=== PATIENT | male | born 1945 | race Caucasian/White ===

== ENCOUNTER 2017-07-26 09:22 | Day surgery (SDC) | payer OTHER ==
[~2017-07-26] VITALS: Ht 175.3 cm; Wt 95.2 kg
[~2017-07-26 09:22] MED LIST: FISH OIL 1,2001 EAC3 PO; FOLI1 PO; HYDCHL25 PO; LOSARTAN POTAS100 MG PO; OMEPRAZOLE MAGN20 MG PO; PRAV20 PO; ROLAIDS PO; SULF500A PO
== END 2017-07-26 22:42 | disposition home or self-care (01) ==
LOC: ORSCMMR 09:22 → ORD 10:45 → ORSCMMR 22:42
PROVIDERS: Orthopaedic Surgery
PROC: 0QPC04Z Removal of Internal Fixation Device from Left Lower Femur, Open Approach (ICD-10-PCS; principal; 2017-07-26 10:45)
DX: T84.195A Other mechanical complication of internal fixation device of left femur, initial encounter (principal); I10 Essential (primary) hypertension; Z87.891 Personal history of nicotine dependence; K21.9 Gastro-esophageal reflux disease without esophagitis; Z79.899 Other long term (current) drug therapy
CPT/HCPCS: 73552; J0690; J1100; J2250; J2405; J3010; J7120

== ENCOUNTER 2018-12-26 07:20 | Day surgery (SDC) | payer OTHER ==
[~2018-12-26] VITALS: Ht 175.3 cm; Wt 93.1 kg
[~2018-12-26 07:20] MED LIST changes: +FISH OIL 1,2001 EAC1 PO
--- NOTE | 2018-12-26 08:30 | NUR ---
12/26/18 0830 Modesta Duval S ATTEMPT X1 IN LEFT HAND. IV STARTED IN LEFT INNER FOREARM.
== END 2018-12-26 10:50 | disposition home or self-care (01) ==
LOC: ORSCSDS 07:20
PROVIDERS: Orthopaedic Surgery
PROC: 0SBD4ZZ Excision of Left Knee Joint, Percutaneous Endoscopic Approach (ICD-10-PCS; principal; 2018-12-26 08:30)
DX: S83.282A Other tear of lateral meniscus, current injury, left knee, initial encounter (principal); M17.9 Osteoarthritis of knee, unspecified; Z96.7 Presence of other bone and tendon implants; I10 Essential (primary) hypertension; Z79.899 Other long term (current) drug therapy; Z87.891 Personal history of nicotine dependence
CPT/HCPCS: J0690; J1100; J2250; J2405; J2704; J3010; J7120

== ENCOUNTER 2019-03-10 17:26 | Observation (INO) | payer OTHER ==
[~2019-03-10] VITALS: Ht 175.3 cm; Wt 92.4 kg
[~2019-03-10 17:26] MED LIST changes: +ANTACID CHEWAB1 EACH PO; -FISH OIL 1,2001 EAC1 PO; +Fish Oil Conc1000 MG PO; -ROLAIDS PO
[2019-03-10 17:49] LABS: BASOPHILS ABSOLUTE AUTO 0.05 K/mm3 (0.00-0.23); BASOPHILS PERCENT AUTO 0 % (0-2); EOSINOPHILS ABSOLUTE AUTO 0.05 K/mm3 (0.00-0.68); EOSINOPHILS PERCENT AUTO 0 % (0-6); Hematocrit 40.8 % (37.0-53.0); Hemoglobin 13.5 g/dL (13.5-17.5); IMMATURE GRAN ABSOLUTE AUTO 0.05 K/mm3 (0.00-0.10); IMMATURE GRAN PERCENT AUTO 0 % (0-1); LYMPHOCYTES ABSOLUTE AUTO 0.96 K/mm3 (0.84-5.20); LYMPHOCYTES PERCENT AUTO 8 % (21-46); MONOCYTES ABSOLUTE AUTO 0.69 K/mm3 (0.16-1.47); MONOCYTES PERCENT AUTO 6 % (4-13); Mean Corpuscular HGB 31.8 pg (26.0-34.0); Mean Corpuscular HGB Conc 33.1 g/dL (31.5-36.5); Mean Corpuscular Volume 96 fL (80-100); Mean Platelet Volume 10.4 fL (9.1-12.4); NEUTROPHILS ABSOLUTE AUTO 10.37 K/mm3 (1.96-9.15); NEUTROPHILS PERCENT AUTO 85 % (41-73); Platelet Count 177 K/mm3 (150-400); RDW Coefficient Variation 12.8 % (11.7-14.2); RDW Standard Deviation 45.4 fL (35.1-46.3); Red Blood Cell Count 4.25 M/mm3 (4.30-5.90); White Blood Cell Count 12.17 K/mm3 (4.00-11.30)
[2019-03-10 18:09] LABS: Alanine Aminotransfer (ALT/SGP 26 U/L (12-78); Albumin, Blood 4.1 g/dL (3.4-5.0); Albumin/Globulin Ratio 1.3 (0.8-1.8); Alk Phos 78 U/L (50-136); Anion Gap 4 mmol/L (6-16); Aspartate Aminotrans (AST/SGOT 18 U/L (12-37); Bilirubin, Total 0.5 mg/dL (0.1-1.0); Blood Urea Nitrogen 21 mg/dL (8-24); Bun/Creatinine Ratio 19.4 (12.0-20.0); CO2, Blood 26 mmol/L (21-32); Chloride, Blood 110 mmol/L (98-108); Creatinine, Blood 1.08 mg/dL (0.60-1.20); Globulin, Blood 3.2 g/dL (2.2-4.0); Glomerular Filtration Rate >60 (60-); Glucose, Blood 125 mg/dL (70-99); Potassium, Blood 4.1 mmol/L (3.5-5.5); Sodium, Blood 140 mmol/L (136-145); Total Protein, Blood 7.3 g/dL (6.4-8.2)
[2019-03-10] MEDS ORDERED: Sulfazine500 MG PO (20:09)
--- NOTE | 2019-03-10 22:40 | NUR ---
PT ARRIVAL AT 2115 PT ARRIVES TO PCU WITH ED RN AT BEDSIDE. PT IMMEDIATELY TRANSFERRED TO CT SCAN WITH ED RN AND RETURNED APPROX 10 MINS LATER. VSS, NO ACUTE SIGNS OF DISTRESS. PT COMPLAINS OF 2/10 PAIN, RLE SPLINTED UPON ARRIVAL. PT ALERT AND ORIENTED, CONVERSING APPROPRIATELY, ABLE TO MAKE NEEDS KNOWN. NS AT 75 ML/HR. NEW RFA IV STARTED BY CN AND FLUIDS INFUSING IN RFA PIV. UPON ARRIVAL, PT ON 6L NC WITH O2 SATURATION AT 100%; PT TITRATED TO 2L WITH SATURATIONS AT 96%. PT DENIES COMPLAINTS OF SOB, CHEST PAIN, CHEST PRESSURE, OR DEL ANGEL. AT APPROX 2220 DR SWANN IN TO SEE PT WITH VERBAL ORDERS FOR NPO P MN. AT APPROX 2230 THIS RN CALLED PROVIDER WITH QUESTION REGARDING ADMISSION ORDERS. ORDERS TO BE PUT IN. NO ACUTE CONCERNS TO NOTE AT THIS TIME, WILL CONTINUE TO MONITOR AND PROVIDE CARE PER CLINICAL JUDGEMENT AND ORDERS.
[2019-03-11 03:46] LABS: Hematocrit 38.8 % (37.0-53.0); Hemoglobin 13.2 g/dL (13.5-17.5); Mean Corpuscular HGB 31.9 pg (26.0-34.0); Mean Corpuscular Volume 94 fL (80-100); Mean Platelet Volume 10.3 fL (9.1-12.4); Platelet Count 173 K/mm3 (150-400); RDW Standard Deviation 44.9 fL (35.1-46.3); Red Blood Cell Count 4.14 M/mm3 (4.30-5.90); White Blood Cell Count 7.97 K/mm3 (4.00-11.30)
[2019-03-11 04:06] LABS: Alanine Aminotransfer (ALT/SGP 31 U/L (12-78); Albumin, Blood 3.6 g/dL (3.4-5.0); Albumin/Globulin Ratio 1.2 (0.8-1.8); Alk Phos 71 U/L (50-136); Anion Gap 7 mmol/L (6-16); Aspartate Aminotrans (AST/SGOT 52 U/L (12-37); Bilirubin, Total 0.7 mg/dL (0.1-1.0); Blood Urea Nitrogen 20 mg/dL (8-24); Bun/Creatinine Ratio 20.6 (12.0-20.0); CO2, Blood 26 mmol/L (21-32); Calcium, Blood 8.3 mg/dL (8.5-10.1); Chloride, Blood 110 mmol/L (98-108); Creatinine, Blood 0.97 mg/dL (0.60-1.20); Globulin, Blood 3.1 g/dL (2.2-4.0); Glomerular Filtration Rate >60 (60-); Glucose, Blood 101 mg/dL (70-99); Potassium, Blood 3.9 mmol/L (3.5-5.5); Sodium, Blood 143 mmol/L (136-145); Total Protein, Blood 6.7 g/dL (6.4-8.2)
--- NOTE | 2019-03-11 05:29 | NUR ---
Shift Summary Pt with no acute events overnight, VSS, no apparent signs of distress. Pt medicated for pain x1 this shift. Pt on RA at this time with o2 sats stable (pt arrived at 6L NC and tolerated titration without complications). this pt is RA at baseline. Plans for OR this day, dr. quick already seen pt. Pt has been NPO since midnight per orders. Alert and oriented, uses call light appropriately to make needs known. Will continue to monitor and provide care until day shift assumes care.
--- NOTE | 2019-03-11 11:56 | NUR ---
PT TAKEN TO OR. PT TAKEN TO OR BY ASHLEY MCCOY. MESSAGE LEFT WITH RECIEVING RN FOR ROOM 217 FOR REPORT. PT BELONGINGS TO BE SENT TO ROOM 217.
--- NOTE | 2019-03-11 12:18 | NUR ---
History, Chart, Medications and Allergies reviewed before start of procedure.Patient confirms NPO status and agrees with scheduled surgery. Lungs clear T/O to Auscultation.
--- NOTE | 2019-03-11 13:58 | NUR ---
REPORT CALLED TO ASHLEY SANTIZO ON SURGICAL. PT BELONGINGS SENT TO 217.
--- NOTE | 2019-03-11 15:40 | NUR ---
PATIENT TO ROOM 217 VIA BED FROM PACU. AWAKE, ORIENTED. RLE ELEVATED ON PILLOW, EXTERNAL FIXATION TO ANKLE. AC WRAP WITH SCANT AMOUNT RED DRAINAGE AT PIN SITE. TOES PINK AND WARM. PATIENT ABLE TO LIFT LEG AND WIGGLE TOES. DENIES PAIN, CP, SOB. VSS. LS CLEAR, DECREASED IN BASES. BIOX 95% ON L O2 PER NC. HRR. DENIES NAUSEA, STATES HE IS JUST HUNGRY. PATIENT STATES KNOWLEDGE OF CALL LIGHT, ETC. CONT TO MONITOR.
--- NOTE | 2019-03-11 16:57 | NUR ---
PATIENT TOOK SNACK, NOW SLEEPING. RESP E/U.
--- NOTE | 2019-03-11 19:12 | NUR ---
PATIENT CONT TO DENY PAIN. VSS. TAKING PO W/O C/O. R LEG ELEVATED. NO NEW DRAINAGE FROM PIN SITES. TOES PINK AND WARM. PATIENT STATES HE FEELS LIKE HE MAY NEED TO URINATE 'SOON.' URINAL AND CALL LIGHT IN REACH. NO ACUTE CHANGES.
--- NOTE | 2019-03-12 04:35 | NUR ---
SHIFT SUMMARY PT HAS SLEPT MUCH OF THE NIGHT. EXTERNAL FIXATION IN PLACE WITH AC WRAP TO LOWER R LEG/FOOT. AT THE START OF THE SHIFT PT DENIED FEELING IN R FOOT BUT HAS SINCE GAINED FEELING IN HIS PINKY TOE. PT HAS DENIED PAIN. ASSISTED WITH ADL'S PRN.
--- NOTE | 2019-03-12 19:22 | NUR ---
SHIFT SUMMARY PATIENT CONT TO DENY PAIN. TOLERATING PO. VOIDING. UP TO SIDE OF BED X 3 THIS SHIFT. IS ENCOURAGED. RLE W/O ADDITIONAL DRAINAGE. TOES PINK, WARM. NO ACUTE CHANGES OR C/O.
--- NOTE | 2019-03-13 04:46 | NUR ---
SHIFT SUMMARY PT A/O. HAS BEEN IN BED WITH R LEG ELEVATED. PT WAS MEDICATED FOR PAIN ONCE DURING THE NIGHT AND HAS SINCE REPORTED LITTLE TO NO PAIN. TOLERATING PO FLUIDS, FOOD. USES URINAL. PT REPORTED NO BM SINCE ADMISSION, GIVEN STOOL SOFTENERS PER ORDERS. EXTERNAL FIXATION IN PLACE. PT REPORTS SENSATION IN TOES.
--- NOTE | 2019-03-13 09:56 | NUR ---
therapy: PT WORKING WITH THERAPY AT THIS TIME. PLAN FOR SNF DC TODAY. PT DENIES PAIN AT THIS TIME.
--- NOTE | 2019-03-13 13:33 | NUR ---
report from obinna laird pt on edge of bed helped pt get his stuff packed up pt to transfer to today at 1500
--- NOTE | 2019-03-13 15:23 | NUR ---
[facility] to telephone report given no acute changes
== END 2019-03-13 15:13 ==
LOC: ER 17:26 → PCU 17:27 → SURS 03-11 12:00
PROVIDERS: Emergency Medicine; Orthopaedic Surgery; ADMIT Internal Medicine
PROC: 0QSGXZZ Reposition Right Tibia, External Approach (ICD-10-PCS; principal; 2019-03-11 12:30)
PROC: 0QSJXZZ Reposition Right Fibula, External Approach (ICD-10-PCS; principal; 2019-03-11 12:30)
DX: S82.391A Other fracture of lower end of right tibia, initial encounter for closed fracture (principal); S82.831A Other fracture of upper and lower end of right fibula, initial encounter for closed fracture; N40.0 Benign prostatic hyperplasia without lower urinary tract symptoms; E78.5 Hyperlipidemia, unspecified; Z79.899 Other long term (current) drug therapy; Z87.19 Personal history of other diseases of the digestive system; Z85.038 Personal history of other malignant neoplasm of large intestine; Z93.3 Colostomy status; W10.9XXA Fall (on) (from) unspecified stairs and steps, initial encounter
CPT/HCPCS: 27752; 36415; 71045; 73560-RT; 73590; 73600; 73610; 73700; 76000; 76377; 80053; 85025; 85027; 93005; 93010; 97110; 97116; 97162; 97166; 97530; 97535; 99152; 99285-25; A9270-GY; C1713; J0690; J1100; J1650; J1885; J2405; J2704; J3010; J7030; J7120

== ENCOUNTER 2019-03-25 10:51 | Day surgery (SDC) | payer OTHER ==
[~2019-03-25] VITALS: Ht 175.3 cm; Wt 91.0 kg
[~2019-03-25 10:51] MED LIST changes: +ACET325 PO; +BISA10S PR; +DOCU100 PO; +ENOX40I SC; +FISH OIL PO; +HYDR1TAB94 PO; +Milk Of Ma400 MG/5 M PO; +OMEPRAZOLE20 MG PO; +Sulfazine500 MG PO
--- NOTE | 2019-03-25 11:52 | NUR ---
Patient up to Ambulate independently. Gait steady. History, Chart, Medications and Allergies reviewed before start of procedure. Lungs clear T/O to Auscultation. Patient confirms NPO status and agrees with scheduled surgery. Pre-Op teaching done. Pt verbalizes understanding. Patient States Post-Procedure ride home has been arranged. Patient reports completing Chlorhexadine shower X2 prior to admission to hospital.
[2019-03-26 05:15] LABS: BASOPHILS ABSOLUTE AUTO 0.02 K/mm3 (0.00-0.23); BASOPHILS PERCENT AUTO 0 % (0-2); EOSINOPHILS ABSOLUTE AUTO 0.01 K/mm3 (0.00-0.68); EOSINOPHILS PERCENT AUTO 0 % (0-6); Hemoglobin 11.7 g/dL (13.5-17.5); IMMATURE GRAN ABSOLUTE AUTO 0.04 K/mm3 (0.00-0.10); IMMATURE GRAN PERCENT AUTO 0 % (0-1); LYMPHOCYTES ABSOLUTE AUTO 1.79 K/mm3 (0.84-5.20); LYMPHOCYTES PERCENT AUTO 17 % (21-46); MONOCYTES ABSOLUTE AUTO 1.15 K/mm3 (0.16-1.47); MONOCYTES PERCENT AUTO 11 % (4-13); Mean Corpuscular HGB 32.2 pg (26.0-34.0); Mean Corpuscular HGB Conc 33.4 g/dL (31.5-36.5); Mean Corpuscular Volume 96 fL (80-100); Mean Platelet Volume 9.9 fL (9.1-12.4); NEUTROPHILS PERCENT AUTO 71 % (41-73); Platelet Count 256 K/mm3 (150-400); RDW Coefficient Variation 12.1 % (11.7-14.2); Red Blood Cell Count 3.63 M/mm3 (4.30-5.90); White Blood Cell Count 10.41 K/mm3 (4.00-11.30)
[2019-03-26 05:34] LABS: Anion Gap 5 mmol/L (6-16); Blood Urea Nitrogen 27 mg/dL (8-24); Bun/Creatinine Ratio 25.7 (12.0-20.0); CO2, Blood 27 mmol/L (21-32); Calcium, Blood 8.4 mg/dL (8.5-10.1); Chloride, Blood 107 mmol/L (98-108); Creatinine, Blood 1.05 mg/dL (0.60-1.20); Glomerular Filtration Rate >60 (60-); Glucose, Blood 97 mg/dL (70-99); Potassium, Blood 4.1 mmol/L (3.5-5.5); Sodium, Blood 139 mmol/L (136-145)
--- NOTE | 2019-03-26 05:59 | NUR ---
SHIFT SUMMARY POD 1 THIS AM. PT A&OX4 W/VSS. AC WRAP AND SPLINT TO RLE C/D/I. PAIN MANAGED 1X WITH PO MEDICATION. ABLE TO REPOSITION SELF IN BED. NO ACUTE CHANGES THIS SHIFT, SLEEP MOST OF THE NIGHT. PLAN TO RETURN TO SNF THIS AM.
--- NOTE | 2019-03-26 08:39 | NUR ---
DR VALLE AND KATELIN HERE RECENTLY TO SEE PT, REPORTED TO REINFORCE DRESSING AND TO HOLD LOVENOX TODAY. REPORTS MAY DISCHARGE TODAY. DRESSING NOW REINFORCED.
--- NOTE | 2019-03-26 11:39 | NUR ---
Spiritual care visit conducted. Patient tells me about his 31 year career as a [employer], his 51 years as a member of [employer] and medical issues of heart, hip and leg trouble. Patient is kind and upbeat. I listen empathically, reinforce helpful attitudes and practices, normalize patient experience and provide companionship and prayer. Patient is tearful during the prayer and extremely appreciative of the visit. I will continue to remain available.
--- NOTE | 2019-03-26 17:00 | NUR ---
REPORT GIVEN TO BELLA AT [facility]. PT RECENTLY MED FOR PAIN.
--- NOTE | 2019-03-26 17:03 | NUR ---
DISCHARGE: PT EATING AND DRINKING. PT PAIN CONTROLLED ON PO PAIN MEDICATION. PT REPORTED ONLY WANTING ONE PAIN PILL RECENTLY. REPORT BEEN GIVEN TO JAMAL. PT VOIDING. PT WORKED WITH THERAPY EARLIER TODAY. BELONGINGS AND PAPERWORK SENT WITH PT. PT SENT WITH I/S AND DRESSING SUPPLIES.
--- NOTE | 2019-03-27 09:06 | NUR ---
03/27/19 0906 Herminia Wyatt VERIFICATIONS: EDIT CHART.
== END 2019-03-26 17:07 ==
LOC: ORSCMMR 10:51 → ORD 12:30 → SURS 17:19 → ORSCMMR 03-26 17:07 → SURS 03-26 17:07
PROVIDERS: Orthopaedic Surgery; Podiatrist Foot & Ankle Surgery
PROC: 0YP9XYZ Removal of Other Device from Right Lower Extremity, External Approach (ICD-10-PCS; principal; 2019-03-25 12:30)
PROC: 0QSG04Z Reposition Right Tibia with Internal Fixation Device, Open Approach (ICD-10-PCS; principal; 2019-03-25 12:30)
PROC: 0QSJ04Z Reposition Right Fibula with Internal Fixation Device, Open Approach (ICD-10-PCS; principal; 2019-03-25 12:30)
DX: S82.251A Displaced comminuted fracture of shaft of right tibia, initial encounter for closed fracture (principal); S82.451A Displaced comminuted fracture of shaft of right fibula, initial encounter for closed fracture; W18.30XA Fall on same level, unspecified, initial encounter; I10 Essential (primary) hypertension; K21.9 Gastro-esophageal reflux disease without esophagitis; E78.5 Hyperlipidemia, unspecified; Z79.899 Other long term (current) drug therapy
CPT/HCPCS: 36415; 73590; 80048; 85025; 97161; 97165; 97530; C1713; C1769; J0690; J1100; J1885; J2370; J2405; J2704; J3010; J7030; J7120

== ENCOUNTER → 2019-04-07 | Outpatient (CLI) | payer OTHER | END | disposition home or self-care (01) | LOC: LAB RH 08:05 → LAB 08:05 → EDSTATUS 12:56 | DX: E29.1 Testicular hypofunction (principal) | CPT/HCPCS: 84403 ==

== ENCOUNTER → 2019-09-09 | Outpatient (CLI) | payer OTHER | END | disposition home or self-care (01) | LOC: PLD 11:42 → LAB SHORT 11:42 | DX: L30.8 Other specified dermatitis (principal) | CPT/HCPCS: 88305; 88312 ==

== ENCOUNTER → 2021-08-24 | Outpatient (CLI) | payer OTHER | END | disposition home or self-care (01) | LOC: LAB 08:12 → LAB SHORT 08:12 | DX: L98.499 Non-pressure chronic ulcer of skin of other sites with unspecified severity (principal) | CPT/HCPCS: 87070; 87205 ==

== ENCOUNTER → 2021-09-28 | Outpatient (CLI) | payer OTHER | END | disposition home or self-care (01) | LOC: LAB SHORT 08:40 → LAB 08:40 | DX: L08.0 Pyoderma (principal) | CPT/HCPCS: 87070; 87205 ==

== ENCOUNTER 2021-10-10 02:03 | Day surgery (SDC) | payer OTHER | END 2021-10-10 23:07 | disposition home or self-care (01) | LOC: WOUND 02:03 | DX: L97.312 Non-pressure chronic ulcer of right ankle with fat layer exposed (principal); S82.91XA Unspecified fracture of right lower leg, initial encounter for closed fracture; I73.9 Peripheral vascular disease, unspecified; G90.09 Other idiopathic peripheral autonomic neuropathy; I10 Essential (primary) hypertension; Z87.891 Personal history of nicotine dependence | CPT/HCPCS: G0463 ==

== ENCOUNTER 2021-10-24 01:54 | Day surgery (SDC) | payer OTHER | END 2021-10-24 22:53 | disposition home or self-care (01) | LOC: WOUND 01:54 | DX: L98.499 Non-pressure chronic ulcer of skin of other sites with unspecified severity (principal); I73.9 Peripheral vascular disease, unspecified; G90.09 Other idiopathic peripheral autonomic neuropathy; S82.91XD Unspecified fracture of right lower leg, subsequent encounter for closed fracture with routine healing; X58.XXXD Exposure to other specified factors, subsequent encounter | CPT/HCPCS: G0463 ==

== ENCOUNTER 2021-11-14 01:03 | Day surgery (SDC) | payer OTHER | END 2021-11-14 23:00 | disposition home or self-care (01) | LOC: WOUND 01:03 | DX: L97.312 Non-pressure chronic ulcer of right ankle with fat layer exposed (principal); S82.91XD Unspecified fracture of right lower leg, subsequent encounter for closed fracture with routine healing; X58.XXXD Exposure to other specified factors, subsequent encounter; L98.499 Non-pressure chronic ulcer of skin of other sites with unspecified severity; I73.9 Peripheral vascular disease, unspecified; G90.09 Other idiopathic peripheral autonomic neuropathy | CPT/HCPCS: A9270; G0463 ==

== ENCOUNTER → 2021-11-28 | Day surgery (SDC) | payer OTHER | LOC: WOUND 03:10 | DX: Z09 Encounter for follow-up examination after completed treatment for conditions other than malignant neoplasm (principal); L98.499 Non-pressure chronic ulcer of skin of other sites with unspecified severity; I73.9 Peripheral vascular disease, unspecified; S82.91XD Unspecified fracture of right lower leg, subsequent encounter for closed fracture with routine healing; G90.09 Other idiopathic peripheral autonomic neuropathy | CPT/HCPCS: A9270; G0463 ==

== ENCOUNTER 2023-11-23 15:03 | Observation (INO) | payer OTHER ==
[~2023-11-23] VITALS: Ht 170.2 cm; Wt 95.2 kg
[2023-11-23 15:30] LABS: BASOPHILS ABSOLUTE AUTO 0.04 K/mm3 (0.00-0.23); BASOPHILS PERCENT AUTO 1 % (0-2); EOSINOPHILS ABSOLUTE AUTO 0.03 K/mm3 (0.00-0.68); EOSINOPHILS PERCENT AUTO 0 % (0-6); Hematocrit 38.8 % (37.0-53.0); Hemoglobin 13.7 g/dL (13.5-17.5); IMMATURE GRAN ABSOLUTE AUTO 0.02 K/mm3 (0.00-0.10); IMMATURE GRAN PERCENT AUTO 0 % (0-1); LYMPHOCYTES ABSOLUTE AUTO 1.55 K/mm3 (0.84-5.20); LYMPHOCYTES PERCENT AUTO 21 % (21-46); MONOCYTES ABSOLUTE AUTO 0.78 K/mm3 (0.16-1.47); MONOCYTES PERCENT AUTO 11 % (4-13); Mean Corpuscular HGB 32.2 pg (26.0-34.0); Mean Corpuscular HGB Conc 35.3 g/dL (31.5-36.5); Mean Corpuscular Volume 91 fL (80-100); NEUTROPHILS ABSOLUTE AUTO 4.98 K/mm3 (1.96-9.15); NEUTROPHILS PERCENT AUTO 67 % (41-73); Platelet Count 179 K/mm3 (150-400); RDW Coefficient Variation 12.3 % (11.7-14.2); RDW Standard Deviation 41.1 fL (35.1-46.3); Red Blood Cell Count 4.25 M/mm3 (4.30-5.90)
[2023-11-23 15:51] LABS: Albumin/Globulin Ratio 1.2 (0.8-1.8); Bilirubin, Total 0.6 mg/dL (0.1-1.0); Bun/Creatinine Ratio 23.5 (12.0-20.0); Calcium, Blood 8.5 mg/dL (8.5-10.1); Creatinine, Blood 1.02 mg/dL (0.60-1.20); Globulin, Blood 3.4 g/dL (2.2-4.0); Potassium, Blood 3.7 mmol/L (3.5-5.5); Total Protein, Blood 7.4 g/dL (6.4-8.2)
[2023-11-23] MEDS ORDERED: PRAV20 PO (16:29)
[2023-11-23] MEDS ORDERED: Aspirin 325 MG Tab PO ONE (16:45)
[2023-11-23 16:53] LABS: Cholesterol 208 mg/dL (50-200); HDL Cholesterol 70 mg/dL (>39); LDL/HDL RATIO 1.5; Low Density Lipoprotein Chol 102 mg/dL (0-110); Triglycerides 179 mg/dL (30-160); Very Low Density Lipoprot Chol 35 mg/dL (6-32)
[2023-11-23] MEDS ORDERED: LORazepam 2 MG/ML 1ML Injection IV PRN (18:00)
[2023-11-23] MEDS ORDERED: ChlordiazePOXIDE 25 MG Cap PO PRN (18:00)
[2023-11-23] MEDS ORDERED: Thiamine HCl 100 MG in NS 50 ML IV SCH (19:00)
[2023-11-23] MEDS ORDERED: Folic Acid 1 MG in NS 50 ML IV SCH (19:00)
[2023-11-23] MEDS ORDERED: AVAPRO300 MG PO (19:19)
[2023-11-23 19:54] VITALS: BP 150/72
[2023-11-23] MEDS ORDERED: SulfASALazine 500 MG Tab PO SCH (21:00)
--- NOTE | 2023-11-23 21:23 | NUR ---
ADMIT NOTE 78 YR OLD MALE AADMITTED TO FLOOR FROM THE ED WITH DX OF POSSIBLE CVA. SYMPTOMS INCLUDED BLURRED VISION AND CONFUSION. WAS ACCOMPANIED BY NEIGHBOR. ALERT TO QUESTIONS ASKED. RIGHT EYE WAS REMOVED PREVIOUSLY - SEE PT HX. LEFT EYE FOLLOWS DIRECTIONS BUT IS BLURRED VISION. HOIST WORKER EQUAL AND STRONG, VOICES FEELING IN ALL 4 EXT. PLANTAR AND DORSI FLEXION EQUAL. SOMEWHAT UNSTEADY GAIT, HAS CANE WITH HIM. ORIENTED TO USE OF CALL LIGHT, RAILS UP X 2 AND BED IN LOW POSITION FOR SAFETY. CALL LIGHT IN REACH. TOLERATES SNACK. MED TELE - SR WITH POSSIBLE 1ST DEG BLOCK. WILL CONT TO ASSESS/MONITOR
[2023-11-24 02:53] VITALS: BP 124/68
--- NOTE | 2023-11-24 03:26 | NUR ---
CIVIL CADD TECHNICIAN SUMMARY ADMITTED TO FLOOR EARLIER WITH DX OF POSSIBLE CVA. VSS. REPORTED CONFUSION AND BLURRY VISION PRIOR TO ED VISIT. A/O X 3-4. WALKS WITH CANE, SEEMS STEADY WITH AMBULATION. AGREES TO USE CALL LIGHT IF NEEDING TO GET OOB, FOR SAFETY. ON MED TELE, SR. NEURO CHECKS REVEAL FEELING IN ALL 4 EXT. TEEN COUNSELOR EQUAL AND STRONG. PLANTAR AND DORSI FLEXION APPEAR EQUAL. HAS BEEN RSTING QUIETLY WITH FEW INTERRUPTIONS OTHERWISE. CALL LIGHT IN REACH, RAILS UP X 2 AND BED IN LOW POSITION FOR SAFETY. ABLE TO REPOSITION SELF IN BED WITHOUT ASSIST. WILL CONTIUE TO MONITOR. SEE ADMIT NOTE FOR DETAILS
[2023-11-24] MEDS ORDERED: Acetaminophen 325 MG TABLET PO PRN (08:05)
[2023-11-24] MEDS ORDERED: Bisacodyl 10 MG Supp PR PRN (08:05)
[2023-11-24] MEDS ORDERED: Sennosides 8.6 MG Tab PO PRN (08:10)
[2023-11-24] MEDS ORDERED: NS 250 ML IV PRN (08:10)
[2023-11-24] MEDS ORDERED: Bisacodyl 5 MG TabEC PO PRN (08:10)
[2023-11-24 08:21] VITALS: BP 147/66
[2023-11-24 08:41] LABS: BASOPHILS ABSOLUTE AUTO 0.03 K/mm3 (0.00-0.23); BASOPHILS PERCENT AUTO 1 % (0-2); EOSINOPHILS ABSOLUTE AUTO 0.06 K/mm3 (0.00-0.68); EOSINOPHILS PERCENT AUTO 1 % (0-6); Hematocrit 38.6 % (37.0-53.0); Hemoglobin 13.4 g/dL (13.5-17.5); IMMATURE GRAN ABSOLUTE AUTO 0.03 K/mm3 (0.00-0.10); IMMATURE GRAN PERCENT AUTO 1 % (0-1); LYMPHOCYTES ABSOLUTE AUTO 1.24 K/mm3 (0.84-5.20); LYMPHOCYTES PERCENT AUTO 21 % (21-46); MONOCYTES ABSOLUTE AUTO 0.51 K/mm3 (0.16-1.47); MONOCYTES PERCENT AUTO 9 % (4-13); Mean Corpuscular HGB Conc 34.7 g/dL (31.5-36.5); Mean Corpuscular Volume 92 fL (80-100); Mean Platelet Volume 10.1 fL (9.1-12.4); NEUTROPHILS ABSOLUTE AUTO 4.14 K/mm3 (1.96-9.15); NEUTROPHILS PERCENT AUTO 69 % (41-73); Platelet Count 158 K/mm3 (150-400); RDW Coefficient Variation 12.4 % (11.7-14.2); RDW Standard Deviation 41.5 fL (35.1-46.3); Red Blood Cell Count 4.19 M/mm3 (4.30-5.90); White Blood Cell Count 6.01 K/mm3 (4.00-11.30)
[2023-11-24] MEDS ORDERED: Irbesartan 150 MG Tab PO SCH (09:00)
[2023-11-24] MEDS ORDERED: Aspirin 81 MG Chew PO SCH (09:00)
[2023-11-24] MEDS ORDERED: Atorvastatin 40 MG Tab PO SCH (09:00)
[2023-11-24] MEDS ORDERED: Enoxaparin 40 MG/0.4 ML SYR SC SCH (09:00)
[2023-11-24 09:14] LABS: Bun/Creatinine Ratio 21.3 (12.0-20.0); Calcium, Blood 8.6 mg/dL (8.5-10.1); Creatinine, Blood 0.85 mg/dL (0.60-1.20); Potassium, Blood 3.9 mmol/L (3.5-5.5)
[2023-11-24] MEDS ORDERED: Empagliflozin 10 MG TAB PO SCH (14:00)
[2023-11-24] MEDS ORDERED: Carvedilol 3.125 MG Tab PO SCH (14:00)
[2023-11-24 14:54] VITALS: BP 137/77
[2023-11-24 15:59] VITALS: BP 108/57
--- NOTE | 2023-11-24 16:09 | NUR ---
PROJECT ANALYST CALLED RN TO NOTIFY HER THAT THERE ARE SOME ST CHANGES ON TELE. OBTAINED VS, ASSESSED PT, HE STATES NO CHEST PAIN, NO DIZZINESS OR COMPLAINTS, FEELS NORMAL. CALL TO DR DUCKWORTH [phone]~ ORDER FOR EKG AND ONE TIME TROPONIN. ASKED FOR RN TO CALL HIM WHEN EKG SCANNED INTO COMPUTER.
--- NOTE | 2023-11-24 18:23 | NUR ---
SUMMARY- PT A/O X3, VERY FORGETFUL, MODERATE CONFUSION RELATED TO DETAILS OF PAST WEEK AND DIDNT KNOW DATE OR YEAR. STATES HE STILL FEELS FUZZY AND STILL HAS VISUAL DISTRUBANCE INCLUDING BLACK AREA IN R VISUAL FIELD THAT MOVES AROUND. AT TIMES A LITTLE DIZZI AND OFF BALANCE. PHYSICAL THERAPY EVALUATED PT AND FOUND THAT HE WAS UNSTEADY AND WOULD HAVE RECOMMENDED SNF, BUT WANTS TO GIVE HIM A DAY AND RE-EVAL TOMORROW SO HE CAN HOPEFULLY GO HOME- THIS IS THE PATIENTS WISHES ESPECIALLY BECAUSE HE HAS CATS AT HOME HE WANTS TO CARE FOR. RECEIVED CALL FROM [facility] [employer] AT [address] OF [facility]- CALLED AND DR DUCKWORTH ORDERED EKG AND TROP. CALLED AND LEFT MESSATE WHEN RESULTS OF EKG INTERFACED. TROP NEGATIVE.
[2023-11-24] MEDS ORDERED: Clopidogrel Bisulfate 75 MG Tab PO SCH (19:00)
[2023-11-24 19:51] VITALS: BP 126/70
[2023-11-24] MEDS ORDERED: Docusate Sodium 100 MG Cap PO SCH (21:00)
[2023-11-25 02:52] VITALS: BP 109/51
--- NOTE | 2023-11-25 03:49 | NUR ---
COMMUNICATIONS ELECTRICIAN SUPERVISOR SUMMARY VSS. NEURO CHECKS CONTINUE TO ASSESS POSSIBLE CVA. DENIES LOSS OF FEELING IN ALL 4 EXT. VOICED SIGHT IN EYE IMPROVED, BUT OCCASIONALLY SEEMS OUT OF FOCUS WHEN LOOKING AT PEOPLE. ENCOURAGED TO SPEAK WITH THE MD IN THE AM. MAPPING EDITOR EQUAL AND STRONG, PLANTAR AND DORSI FLEXION EQUAL. UP AD ANASTASIA WITH CANE. ENCOURAGED TO CALL IF NEEDING ASSIST. HAS BEEEN RESTING QUIETLY WITH FEW INTERRUPTIONS. MED TELE SINUS, BUT WENT [place]. WAS AWAKENED AT THAT TIME, SEEMED TO BE IN DEEP SLEEP AT THE TIME. ABLE TO POSITOIN SELF IN BED WITHOUT ASSIST. CALL LIGHT IN REACH, RAILS UP X 2 AND BED IN LOW POSITION FOR SAFETY. WILL CONTINUE TO MONITOR. AFFECT CHEERFUL AND COOPERATIVE WITH TREAMENT
[2023-11-25 05:05] LABS: BASOPHILS ABSOLUTE AUTO 0.03 K/mm3 (0.00-0.23); BASOPHILS PERCENT AUTO 1 % (0-2); EOSINOPHILS ABSOLUTE AUTO 0.06 K/mm3 (0.00-0.68); EOSINOPHILS PERCENT AUTO 1 % (0-6); Hematocrit 38.5 % (37.0-53.0); Hemoglobin 13.1 g/dL (13.5-17.5); IMMATURE GRAN ABSOLUTE AUTO 0.02 K/mm3 (0.00-0.10); IMMATURE GRAN PERCENT AUTO 0 % (0-1); LYMPHOCYTES ABSOLUTE AUTO 1.53 K/mm3 (0.84-5.20); LYMPHOCYTES PERCENT AUTO 26 % (21-46); MONOCYTES ABSOLUTE AUTO 0.58 K/mm3 (0.16-1.47); MONOCYTES PERCENT AUTO 10 % (4-13); Mean Corpuscular HGB 31.5 pg (26.0-34.0); Mean Corpuscular Volume 93 fL (80-100); Mean Platelet Volume 10.5 fL (9.1-12.4); NEUTROPHILS PERCENT AUTO 63 % (41-73); Platelet Count 156 K/mm3 (150-400); RDW Coefficient Variation 12.2 % (11.7-14.2); RDW Standard Deviation 41.5 fL (35.1-46.3); Red Blood Cell Count 4.16 M/mm3 (4.30-5.90); White Blood Cell Count 5.92 K/mm3 (4.00-11.30)
[2023-11-25 05:29] LABS: Bun/Creatinine Ratio 22.5 (12.0-20.0); Calcium, Blood 8.5 mg/dL (8.5-10.1); Creatinine, Blood 0.89 mg/dL (0.60-1.20); Potassium, Blood 3.9 mmol/L (3.5-5.5)
[2023-11-25 07:42] VITALS: BP 141/75
[2023-11-25 08:29] VITALS: BP 146/90
[2023-11-25] MEDS ORDERED: ATOR80 PO (09:38)
[2023-11-25] MEDS ORDERED: Aspir 8181 MG PO (09:39)
[2023-11-25] MEDS ORDERED: CLOP75 PO (09:40)
[2023-11-25] MEDS ORDERED: JARDIANCE10 MG PO (09:40)
[2023-11-25] MEDS ORDERED: CARV3.125 PO (09:40)
[2023-11-25 15:01] VITALS: BP 125/110
--- NOTE | 2023-11-25 17:04 | NUR ---
SHIFT SUMMARY PATIENT A/OX3 AND FORGETFUL. CIWA SCORE OF 1 TODAY. SPEECH THERAPY ASSESSED PATIENT AND NEW DIET ORDERS RECIEVED. MEDS TO BE GIVEN WHOLE IN APPLESAUCE. FOLIC ACID AND THIAMINE IV INFUSIONS CHANGED TO ORAL TABS. PATIENT DENIES WEAKNESS BUT COMPLAINING OF FORGETFULLNESS/DIFFICULTY REMEMBERING NAMES OF NEIGHBORS AND PETS. PATIENT EXPERIENCING VISUAL FIELD CUT IN LEFT EYE. OT EVAL TODAY REQUESTING COGNITIVE SCREEN. NOTIFIED. NO OTHER CONCERNS AT THIS TIME.
[2023-11-25 19:18] VITALS: BP 135/83
[2023-11-26 04:34] VITALS: BP 123/72
--- NOTE | 2023-11-26 05:09 | NUR ---
SHIFT SUMMARY NOC PT A/O X 4. LUMBEE AND FORGETFUL AT TIMES SINCE CVA, BUT PLEASANT AND COOPERATIVE WITH CARE. VSS. NO ACUTE CHANGES TO REPORT. PT STILL HAS C/O OF BLURRED VISION AND HAS TROUBLE MAKING OUT OBJECTS WITH L EYE. USING CANE INDEPENDENTLY IN ROOM WITH STABLE GAIT. NEURO CHECKS Q4H WITH NO NEW CHANGES. ON TELE SINUS [place] IN MID 50'S WHILE RESTING. PT HAS COGNITIVE AND PT EVALS SCHEDULED FOR TODAY. DISCHARGE PENDING PT RECOMMENDING SNF FOR REHAB VERSUS PT GOING HOME WITH HELP FROM NEIGHBORS AND [employer] MEM[employer] AT HOME. PT CURRENTLY RESTING WITH BED IN LOWEST POSITION, AND CALL LIGHT WITHIN REACH.
[2023-11-26 05:11] LABS: BASOPHILS ABSOLUTE AUTO 0.02 K/mm3 (0.00-0.23); BASOPHILS PERCENT AUTO 0 % (0-2); EOSINOPHILS ABSOLUTE AUTO 0.06 K/mm3 (0.00-0.68); EOSINOPHILS PERCENT AUTO 1 % (0-6); Hematocrit 38.6 % (37.0-53.0); IMMATURE GRAN ABSOLUTE AUTO 0.02 K/mm3 (0.00-0.10); IMMATURE GRAN PERCENT AUTO 0 % (0-1); LYMPHOCYTES ABSOLUTE AUTO 1.54 K/mm3 (0.84-5.20); LYMPHOCYTES PERCENT AUTO 24 % (21-46); MONOCYTES ABSOLUTE AUTO 0.67 K/mm3 (0.16-1.47); MONOCYTES PERCENT AUTO 10 % (4-13); Mean Corpuscular HGB 31.4 pg (26.0-34.0); Mean Corpuscular HGB Conc 33.7 g/dL (31.5-36.5); Mean Corpuscular Volume 93 fL (80-100); Mean Platelet Volume 10.4 fL (9.1-12.4); NEUTROPHILS ABSOLUTE AUTO 4.21 K/mm3 (1.96-9.15); NEUTROPHILS PERCENT AUTO 65 % (41-73); Platelet Count 171 K/mm3 (150-400); RDW Coefficient Variation 12.3 % (11.7-14.2); RDW Standard Deviation 42.4 fL (35.1-46.3); Red Blood Cell Count 4.14 M/mm3 (4.30-5.90); White Blood Cell Count 6.52 K/mm3 (4.00-11.30)
[2023-11-26 05:43] LABS: Albumin, Blood 3.4 g/dL (3.4-5.0); Albumin/Globulin Ratio 1.1 (0.8-1.8); Bilirubin, Total 0.6 mg/dL (0.1-1.0); Bun/Creatinine Ratio 18.2 (12.0-20.0); Calcium, Blood 8.5 mg/dL (8.5-10.1); Creatinine, Blood 0.99 mg/dL (0.60-1.20); Globulin, Blood 3.2 g/dL (2.2-4.0); Potassium, Blood 4.1 mmol/L (3.5-5.5); Total Protein, Blood 6.6 g/dL (6.4-8.2)
[2023-11-26] MEDS ORDERED: Thiamine HCl 100 MG Tab PO SCH (09:00)
[2023-11-26] MEDS ORDERED: Folic Acid 1 MG TAB PO SCH (09:00)
[2023-11-26] MEDS ORDERED: B-1100 M1 PO (14:07)
--- NOTE | 2023-11-26 14:14 | NUR ---
NOTE: THIS NURSE CALLED [facility] AT 1414 TO SEE IF THE PRINT ON THE BOTTLE COULD BE ENLARGED WELL A DESCRIPTION OF EACH MEDICATION. PER THE BOWLING BALL GRADER AND MARKER, THEY CANNOT CHANGE THE FONT ON THE BOTTLES BUT CAN ENLARGE THE PRINT ON THE MEDICATIONS INSTRUCTIONS. THE DESCRIPTION OF EACH MED IS ALREADY PRINTED ON THE BOTTLE, PER THE BOWLING BALL GRADER AND MARKER AT [facility].
[2023-11-26 15:06] VITALS: BP 144/84
--- NOTE | 2023-11-26 16:13 | NUR ---
DISCHARGE NOTE PT DISCHARGED TO HOME, PICKED UP BY HIS NEIGHBOR. MEDICATIONS FAXED TO THE PHARMACY OF HIS CHOICE. IV REMOVED. TELE RETURNED. TAKEN TO VEHICLE BY WC BY DORI.
== END 2023-11-26 16:21 | disposition home health service (06) ==
LOC: ER 15:03 → MEDS 15:04
PROVIDERS: Emergency Medicine; Physician Assistant; ADMIT Internal Medicine
DX: I63.9 Cerebral infarction, unspecified (principal); I10 Essential (primary) hypertension; N40.0 Benign prostatic hyperplasia without lower urinary tract symptoms; E78.00 Pure hypercholesterolemia, unspecified; K51.90 Ulcerative colitis, unspecified, without complications; F10.10 Alcohol abuse, uncomplicated; Z79.899 Other long term (current) drug therapy
CPT/HCPCS: 36415; 70450; 70496; 70498; 80048; 80053; 80061; 83036; 84484; 85025; 92610; 93005; 93010; 93306; 96365-59; 96367-59; 96372; 96376; 97110; 97112; 97116; 97161; 97166; 97530; 99285-25; A9270; G0378; J1650; J3411; J7050; Q9967